=== PATIENT | female | born 1995 | race Caucasian/White ===

== ENCOUNTER 2017-07-23 11:27 | Emergency (ER) | payer MEDICAID ==
[~2017-07-23] VITALS: Ht 154.9 cm; Wt 72.6 kg
[2017-07-23 12:20] VITALS: BP 108/68
== END 2017-07-23 12:20 | disposition home or self-care (01) ==
LOC: ED 11:27
DX: T19.2XXA Foreign body in vulva and vagina, initial encounter (principal); X58.XXXA Exposure to other specified factors, initial encounter; Y93.89 Activity, other specified; Y99.8 Other external cause status; Y92.89 Other specified places as the place of occurrence of the external cause

== ENCOUNTER 2018-01-29 00:45 | Emergency (ER) | payer MEDICAID ==
[~2018-01-29] VITALS: Ht 154.9 cm; Wt 71.2 kg
[2018-01-29 00:52] VITALS: Ht 154.9 cm; Wt 71.2 kg
[2018-01-29 01:57] LABS: PLATELET COUNT 391 x10^3mcL (130-400); RED CELL DISTRIBUTION WIDTH 12.4 % (11.5-14.5)
[2018-01-29 01:58] LABS: UA SPECIFIC GRAVITY 1.025 (1.005-1.035); microscopic required? YES; urine erythrocyte 3+ (NEGATIVE)
[2018-01-29 02:08] LABS: BASOPHIL % 4.6 % (0-2)
[2018-01-29 02:09] LABS: CALCIUM 8.6 mg/dL (8.5-10.1); CHLORIDE SERUM 107 mmol/L (98-107); CREATININE SERUM 0.5 mg/dL (0.6-1.0); GFR1 > 60 mL/min; GLUCOSE SERUM 106 mg/dL (74-106); POTASSIUM SERUM 3.7 mmol/L (3.5-5.1); SODIUM SERUM 142 mmol/L (136-145)
[2018-01-29 02:13] LABS: ALBUMIN 3.7 g/dL (3.4-5.0); ALKALINE PHOSPHATASE 76 U/L (46-116); ALT/SGPT 20 U/L (14-59); AMYLASE 44 U/L (25-115); AST/SGOT 18 U/L (15-37); BILIRUBIN TOTAL 0.21 mg/dL (0.20-1.00); LIPASE 113 IU/L (73-393); TOTAL PROTEIN, SERUM 7.3 g/dL (6.4-8.2)
[2018-01-29 03:06] VITALS: BP 117/75
== END 2018-01-29 03:06 | disposition home or self-care (01) ==
LOC: ED 00:45
PROVIDERS: Emergency Medicine
DX: K51.20 Ulcerative (chronic) proctitis without complications (principal)
CPT/HCPCS: 36415; 83880; J1885

== ENCOUNTER 2018-04-26 00:24 | Emergency (ER) | payer MEDICAID ==
[2018-04-26 02:20] VITALS: BP 125/71
== END 2018-04-26 02:20 | disposition home or self-care (01) ==
LOC: ED 00:24
DX: A08.39 Other viral enteritis (principal)

== ENCOUNTER 2018-04-27 19:23 | Emergency (ER) | payer MEDICAID ==
[~2018-04-27] VITALS: Ht 154.9 cm; Wt 68.5 kg
[2018-04-27 19:43] VITALS: Ht 154.9 cm; Wt 68.5 kg
[2018-04-27 20:52] LABS: BASOPHIL % 0.2 % (0-2); PLATELET COUNT 334 x10^3mcL (130-400); RED CELL DISTRIBUTION WIDTH 13.1 % (11.5-14.5)
[2018-04-27 20:54] LABS: UA SPECIFIC GRAVITY 1.025 (1.005-1.035); microscopic required? YES; urine erythrocyte 3+ (NEGATIVE)
[2018-04-27 21:08] LABS: ALBUMIN 3.9 g/dL (3.4-5.0); ALKALINE PHOSPHATASE 78 U/L (46-116); ALT/SGPT 24 U/L (14-59); AST/SGOT 22 U/L (15-37); BILIRUBIN TOTAL 0.3 mg/dL (0.20-1.00); CARBON DIOXIDE 30.2 mmol/L (21-32); CHLORIDE SERUM 101 mmol/L (98-107); CREATININE SERUM 0.6 mg/dL (0.6-1.0); GFR1 > 60 mL/min; GLUCOSE SERUM 105 mg/dL (74-106); LIPASE 69 IU/L (73-393); POTASSIUM SERUM 3.5 mmol/L (3.5-5.1); SODIUM SERUM 139 mmol/L (136-145); TOTAL PROTEIN, SERUM 7.9 g/dL (6.4-8.2)
[2018-04-27 21:16] LABS: CALCIUM 8.5 mg/dL (8.5-10.1)
[2018-04-28 00:28] VITALS: BP 108/65
== END 2018-04-28 00:28 | disposition home or self-care (01) ==
LOC: ED 19:23
PROVIDERS: Emergency Medicine
DX: R10.13 Epigastric pain (principal); R19.7 Diarrhea, unspecified
CPT/HCPCS: J1885; J2270; J7030

== ENCOUNTER 2019-09-24 07:14 | Emergency (ER) | payer BC ==
[~2019-09-24] VITALS: Ht 154.9 cm; Wt 68.9 kg
[2019-09-24 07:17] VITALS: Ht 154.9 cm; Wt 68.9 kg
[2019-09-24 08:15] VITALS: BP 127/65
== END 2019-09-24 08:15 | disposition home or self-care (01) ==
LOC: ED 07:14
DX: N39.0 Urinary tract infection, site not specified (principal)

== ENCOUNTER 2019-09-28 20:12 | Emergency (ER) | payer BC ==
[~2019-09-28] VITALS: Ht 157.5 cm; Wt 69.4 kg
[2019-09-28 20:15] VITALS: BP 129/79; Ht 157.5 cm; Wt 69.4 kg
== END 2019-09-28 22:02 | disposition home or self-care (01) ==
LOC: ED 20:12
DX: J40 Bronchitis, not specified as acute or chronic (principal)
CPT/HCPCS: J1885

== ENCOUNTER 2019-10-26 16:20 | Emergency (ER) | payer BC ==
[~2019-10-26] VITALS: Ht 154.9 cm; Wt 68.9 kg
[2019-10-26 16:34] VITALS: BP 128/74; Ht 154.9 cm; Wt 68.9 kg
== END 2019-10-26 17:40 | disposition home or self-care (01) ==
LOC: ED 16:20
DX: J40 Bronchitis, not specified as acute or chronic (principal)
CPT/HCPCS: J1100